=== PATIENT | female | born 1990 | race Caucasian/White ===

== ENCOUNTER 2022-08-08 09:05 | Inpatient (IN) | payer BC ==
[2022-08-08] MEDS ORDERED: hydrALAZINE 20 MG/ML VIAL SLOW IVP PRN ×3 (10:17→21:35)
[2022-08-08] MEDS ORDERED: Ondansetron PF 4 MG/2 ML Vial IVP PRN ×2 (12:24→21:35)
[2022-08-08] MEDS ORDERED: Butorphanol Tartrate 1 MG/ML VIAL SLOW IVP PRN (12:24)
[2022-08-08] MEDS ORDERED: Lactated Ringer's 1,000 ML IV PRN (12:24)
[2022-08-08] MEDS ORDERED: Methylergonovine 0.2 MG/ML VIAL IM PRN (12:24)
[2022-08-08] MEDS ORDERED: Lidocaine 1% (PF) 30 ML VIAL SC PRN (12:24)
[2022-08-08] MEDS ORDERED: Ibuprofen 800 MG TAB PO PRN (12:24)
[2022-08-08] MEDS ORDERED: HYDROcodone/Acetaminophen 5/325 mg Tablet PO PRN ×4 (12:24→21:35)
[2022-08-08] MEDS ORDERED: Promethazine HCl 25 MG/ML VIAL IM PRN (12:24)
[2022-08-08] MEDS ORDERED: Misoprostol 200 MCG TAB PR PRN (12:24)
[2022-08-08] MEDS ORDERED: NS w/ Oxytocin 30 units 500 ML IV SCH ×2 (12:30→21:35)
[2022-08-08 14:17] VITALS: BMI 32.2
[2022-08-08 14:40] LABS: Hemoglobin 12.8 g/dL (12.0-15.5); Mean Corpuscular HGB CONC 33.2 g/dL (32.0-36.0); Mean Corpuscular Hemoglobin 29.1 pg (27.0-33.0); Mean Corpuscular Volume 87.7 fl (81.6-98.3); Mean Platelet Volume 11.5 fl (7.4-10.4); Platelet Count 255 10x3/uL (150-450); White Blood Cell (WBC) Count 12.3 10x3/uL (3.5-10.5)
[2022-08-08] MEDS ORDERED: Lidocaine 1% (PF) 30 ML VIAL ONE (17:43)
[2022-08-08 18:00] LABS: HBSAg Index 0.12 S/CO (0-0.99); Hep B Surf Ag Non-Reactive S/CO (NonReactive)
[2022-08-08 18:01] LABS: Syphilis Antibody Nonreactive (Nonreactive); Syphilis Antibody Index 0.07 S/CO (<1.00 Non-Reactive)
[2022-08-08] MEDS ORDERED: Misoprostol 200 MCG TAB VAG PRN (21:35)
[2022-08-08] MEDS ORDERED: Milk Of Magnesia 30 ML UDCUP PO PRN (21:35)
[2022-08-08] MEDS ORDERED: Bisacodyl 10 MG SUPP PR PRN (21:35)
[2022-08-08] MEDS ORDERED: Lanolin Ointment 7 GM TUBE TOP PRN (21:35)
[2022-08-08] MEDS ORDERED: Boostrix 0.5 ML (Tdap) VIAL (>/=7 yrs of age) IM ONE (21:35)
[2022-08-08] MEDS ORDERED: Benzocaine-Menthol 82.5 ML CAN TOP PRN (21:35)
[2022-08-08] MEDS: Ibuprofen 800 MG TAB PO SCH (21:45)
[2022-08-08] MEDS ORDERED: Docusate 100 MG CAP PO SCH (21:45)
[2022-08-08 22:02] VITALS: TEMP 98.2
[2022-08-09] MEDS: Ibuprofen 800 MG TAB PO SCH ×2 (06:16→13:55)
[2022-08-09] MEDS ORDERED: Docusate 100 MG CAP PO SCH (09:00)
[2022-08-09] MEDS: Ferrous Sulfate 325 MG TAB PO SCH ×2 (09:34→16:50)
[2022-08-09 16:24] VITALS: BP 117/64
== END 2022-08-09 19:30 | disposition home or self-care (01) | DRG 807 ==
LOC: CSHLD/OP 09:05 → CSHLD 12:24 → CSHPP 21:15
PROVIDERS: ADMIT Obstetrics & Gynecology; ATTEND Obstetrics & Gynecology
PROC: 10E0XZZ Delivery of Products of Conception, External Approach (ICD-10-PCS; principal; 2022-08-08)
PROC: 0KQM0ZZ Repair Perineum Muscle, Open Approach (ICD-10-PCS; 2022-08-08)
DX: O70.1 Second degree perineal laceration during delivery (principal); Z37.0 Single live birth; Z3A.40 40 weeks gestation of pregnancy
CPT/HCPCS: 85027; 85461; 86780; 86850; 86900; 86901; 87340; 90384; 96372; 99285